=== PATIENT | female | born 1985 | race Caucasian/White ===

== ENCOUNTER 2023-06-19 20:30 | Emergency (ER) | payer SELFPAY ==
[2023-06-19 20:53] LABS: Bilirubin Neg (Negative); Blood, Urine Negative (Negative); Clarity Clear (Clear); Glucose, Urine (Dipstick) Normal (Negative); Ketone, Urine Negative (Negative); Leukocyte Negative (Negative); Nitrite Positive (Negative); Protein, Urine (Dipstick) 15 mg/dl (Neg-Trace)
[2023-06-19 20:59] LABS: Pregnancy Test - Urine (BHCG) Negative (Negative); Pregu Control Background? CLEAR/WHITE (CLR/WHITE); Pregu Control Bar Appear? YES (CONTROL BAR)
[2023-06-19 21:00] LABS: Bacteria/HPF Rare-Few HPF (None Seen); CAUTI Indications for Culture Pelvic or flank pain; RBC/HPF 0-3 HPF (0-3); Squamous Epithelial 0-3 HPF (0-3); Urine Culture Reflex No No; WBC/HPF 0-3 HPF (0-3)
[2023-06-19 21:23] LABS: #Eosinphils 0.1 10x3/uL (0.0-0.5); #Neutrophils 8.7 10x3/uL (1.5-8.4); %Basophils 0.2 % (0.0-2.0); %Eosinophils 0.7 % (0.0-6.0); %Lymphocytes 12.5 % (18.0-47.0); %Monocytes 8.6 % (0.0-10.0); %Neutrophils 77.6 % (40.0-75.0); Hematocrit 36.4 % (34.9-44.5); Hemoglobin 12.3 g/dL (12.0-15.5); Mean Corpuscular HGB CONC 33.8 g/dL (32.0-36.0); Mean Corpuscular Hemoglobin 30.4 pg (27.0-33.0); Mean Corpuscular Volume 90.1 fl (81.6-98.3); Mean Platelet Volume 9.2 fl (7.4-10.4); Platelet Count 274 10x3/uL (150-450); RBC Distribution Width 12.8 % (11.5-14.5); Red Blood Cell (RBC) Count 4.04 10x6/uL (3.90-5.03); White Blood Cell (WBC) Count 11.2 10x3/uL (3.5-10.5)
[2023-06-19 21:34] LABS: BHCG - Serum Negative (NEGATIVE); Pregs Control Background? CLEAR/WHITE (CLR/WHITE); Pregs Control Bar Appear? YES (CONTROL BAR)
[2023-06-19 21:35] LABS: ALT (SGPT) 274 U/L (8-55); AST (SGOT) 188 U/L (5-34); Albumin 3.8 g/dL (3.5-5.0); Alkaline Phosphatase 270 U/L (40-110); Anion Gap 14 mmol/L (10-20); BUN (Urea Nitrogen) 10 mg/dL (7.0-18.7); Bilirubin, Total 0.8 mg/dL (0.2-1.2); Calc. Creatinine Clearance 0 mL/min (70-130); Calcium 9.3 mg/dL (7.8-10.44); Carbon Dioxide 25 mmol/L (22-29); Chloride 100 mmol/L (98-107); Estimated GFR 115; Globulin 3.5 g/dL (2.4-3.5); Glucose 90 mg/dL (70-105); Protein, Total 7.3 g/dL (6.0-8.3); Sodium 135 mmol/L (136-145)
[2023-06-19] MEDS ORDERED: Ketorolac Tromethamine 30 MG/ML VIAL ONE (21:35)
[2023-06-19] MEDS ORDERED: Ondansetron PF 4 MG/2 ML Vial ONE (21:35)
[2023-06-19] MEDS ORDERED: Morphine 4 MG/ML VIAL ONE (21:35)
[2023-06-19 22:51] LABS: SARS-CoV-2 NAA Rapid Test Not Detected (NotDetected)
[2023-06-19] MEDS ORDERED: Piperacillin/Tazobactam 3.375 GM VIAL ONE (22:56)
[2023-06-20] MEDS ORDERED: Morphine 4 MG/ML VIAL ONE ×2 (01:08→02:50)
== END 2023-06-20 05:35 | disposition short-term general hospital (02) ==
LOC: CSHERS 20:30
DX: K65.1 Peritoneal abscess (principal); Z20.822 Contact with and (suspected) exposure to COVID-19
CPT/HCPCS: 36415; 74177; 80053; 81001; 81025; 83690; 84703; 85025; 96374; 96375; 96376; J1885; J2270; J2405; J2543